=== PATIENT | male | born 1935 | race Caucasian/White ===

== ENCOUNTER 2017-04-17 19:36 | Inpatient (IN) | payer OTHER ==
[~2017-04-17] VITALS: Ht 185.4 cm; Wt 58.1 kg
[~2017-04-17 19:36] MED LIST: ADULT LOW DOSE81 M1 PO; ALENDRONATE SOD70 MG PO; APRISO0.375 GM PO; AVODART0.5 MG PO; BALSALAZIDE DI750 MG PO; BEER; CALCIUM + D TA1 EACH PO; CITRATE OF MAG296 ML PO; DELZICOL400 MG PO; DOCUSATE SODIU100 MG PO; FINASTERIDE5 MG PO; FLOMAX0.4 MG PO; METFORMIN HCL500 MG PO; METRO GEL 1%60 GM PO; RANITIDINE HCL300 MG PO; SENNA PLUS TAB1 EACH PO; TOPROL XL50 MG PO; VIAGRA100 MG PO; VITAMIN D31000 UNIT PO; ZOCOR20 MG PO; [UNRECOGNIZED DRUG - OTHER] PO
[2017-04-17 20:01] LABS: HEMATOCRIT 36.3 % (38.0-50.0); MCH 29.2 PG (29.0-34.0); MCHC 33.1 G/DL (30.0-36.0); MCV 88.3 FL (86-99); PLATELET COUNT 366 K/uL (156-360); RBC DIS.WIDTH-CV 13.3 % (11.8-14.6); RBC DIS.WIDTH-SD 43.2 % (39-53); RED BLOOD COUNT 4.11 M/uL (4.00-5.50); WHITE BLOOD COUNT 15.9 K/uL (4.1-10.2)
[2017-04-17 20:09] LABS: CHLORIDE 96 mEq/L (99-109); POTASSIUM 3.7 mEq/L (3.7-5.4); SODIUM 139 mEq/L (136-147)
[2017-04-17 20:10] LABS: GLUCOSE 177 mg/dL (70-99)
[2017-04-17 20:14] LABS: CREATININE 0.8 mg/dL (0.6-1.3); GFR ESTIMATE (CALCULATED) > 59 mL/min/ (58.99-99999)
[2017-04-17 20:15] LABS: UREA NITROGEN (BUN) 19 mg/dL (9-23)
[2017-04-17 20:38] LABS: ALBUMIN 3.9 g/dL (3.2-4.8)
[2017-04-17 20:41] LABS: TOTAL PROTEIN 7.3 g/dL (6.4-8.3)
[2017-04-17 20:43] LABS: TOTAL BILIRUBIN 1.4 mg/dL (0.0-1.0)
[2017-04-17 20:44] LABS: ALKALINE PHOSPHATASE 54 IU/L (3-129)
[2017-04-17 20:46] LABS: AST (GOT) 11 IU/L (2-34)
[2017-04-17 20:47] LABS: ALT (GPT) 12 IU/L (3-49); DIRECT BILIRUBIN 0.6 mg/dL (0.0-0.3)
[2017-04-17 21:44] LABS: THYROTROPIN (TSH) 0.53 MIU/L (0.4-5.5)
[2017-04-17 22:00] LABS: TROP-I INTERPRETATION NEGATIVE; TROPONIN-I < 0.01 ng/mL (0.0-0.30)
[2017-04-17] MEDS ORDERED: BALSALAZIDE DI750 MG PO (22:58)
[2017-04-17] MEDS ORDERED: FIBER0.4 GM PO (22:58)
[2017-04-17] MEDS ORDERED: ARICEPT23 MG PO (22:58)
[2017-04-17] MEDS ORDERED: LISINOPRIL5 MG PO (22:58)
[2017-04-17] MEDS ORDERED: FOLIC ACID1 MG PO (22:59)
[2017-04-17] MEDS ORDERED: JANUVIA25 M1 PO (22:59)
[2017-04-17] MEDS ORDERED: CYANOCOBALAM1000 MCG PO (22:59)
[2017-04-17] MEDS ORDERED: CYMBALTA30 MG PO (22:59)
[2017-04-17] MEDS ORDERED: PROTONIX40 MG PO (22:59)
[2017-04-17] MEDS ORDERED: IPRATROPIUM BRO15 ML BOTH NARES (22:59)
[2017-04-18 00:55] VITALS: BP 160/97
[2017-04-18 03:45] VITALS: BP 149/73
[2017-04-18 06:57] LABS: BASOPHIL (%) 0.3 % (0-1); EOSINOPHIL (%) 0.1 % (0-5); HEMATOCRIT 35.1 % (38.0-50.0); HEMOGLOBIN 11.2 G/DL (12.5-16.6); IMMATURE GRANULOCYTE (%) 0.9 % (0.0-0.7); LYMPHOCYTE (%) 4.6 % (15-42); LYMPHOCYTE COUNT 0.7 K/uL (1.0-2.8); MCH 28.6 PG (29.0-34.0); MCHC 31.9 G/DL (30.0-36.0); MCV 89.8 FL (86-99); MONOCYTE (%) 6.9 % (3-12); NEUTROPHIL (%) 87.2 % (45-76); NEUTROPHIL COUNT 13.2 K/uL (1.8-6.4); PLATELET COUNT 333 K/uL (156-360); RBC DIS.WIDTH-CV 13.4 % (11.8-14.6); RBC DIS.WIDTH-SD 44.3 % (39-53); RED BLOOD COUNT 3.91 M/uL (4.00-5.50); WHITE BLOOD COUNT 15.1 K/uL (4.1-10.2)
[2017-04-18 07:15] LABS: CHLORIDE 100 MEQ/L (99-109); CREATININE 0.8 MG/DL (0.6-1.3); GFR ESTIMATE (CALCULATED) > 59 mL/min/ (58.99-99999); GLUCOSE 143 mg/dL (70-99); MAGNESIUM 1.9 mg/dl (1.3-2.7); PHOSPHORUS 3.5 mg/dL (2.5-4.9); POTASSIUM 3.8 MEQ/L (3.7-5.4); SODIUM 141 MEQ/L (136-147); UREA NITROGEN (BUN) 19 mg/dL (9-23)
[2017-04-18 07:59] VITALS: BP 151/80
[2017-04-18 15:38] VITALS: BP 136/71
[2017-04-18 19:57] VITALS: BP 174/76
[2017-04-18 23:55] VITALS: BP 136/84
[2017-04-19 03:55] VITALS: BP 165/76
[2017-04-19 06:12] LABS: HEMATOCRIT 30.4 % (38.0-50.0); HEMOGLOBIN 9.6 G/DL (12.5-16.6); MCH 28.2 PG (29.0-34.0); MCHC 31.6 G/DL (30.0-36.0); MCV 89.1 FL (86-99); PLATELET COUNT 317 K/uL (156-360); RBC DIS.WIDTH-CV 13.4 % (11.8-14.6); RBC DIS.WIDTH-SD 44.2 % (39-53); RED BLOOD COUNT 3.41 M/uL (4.00-5.50); WHITE BLOOD COUNT 13.3 K/uL (4.1-10.2)
[2017-04-19 06:43] LABS: CHLORIDE 102 MEQ/L (99-109); CREATININE 0.7 MG/DL (0.6-1.3); GFR ESTIMATE (CALCULATED) > 59 mL/min/ (58.99-99999); GLUCOSE 124 mg/dL (70-99); POTASSIUM 3.4 MEQ/L (3.7-5.4); SODIUM 140 MEQ/L (136-147); UREA NITROGEN (BUN) 16 mg/dL (9-23)
[2017-04-19 07:59] VITALS: BP 157/72
[2017-04-19] MEDS ORDERED: SPIRIVA RESPIMAT4 GM IH (09:28)
[2017-04-19] MEDS ORDERED: VENTOLIN HFA18 GM IH (09:29)
== END 2017-04-19 13:46 | disposition home or self-care (01) | DRG 178 ==
LOC: EME 19:36 → EDOF 23:33 → ENRESERV 23:34 → EDOF 04-18 00:54 → 5SOUTH 04-18 00:55
PROVIDERS: Emergency Medicine; Hospitalist; Internal Medicine
DX: J69.0 Pneumonitis due to inhalation of food and vomit (principal); R13.10 Dysphagia, unspecified; E46 Unspecified protein-calorie malnutrition; J44.9 Chronic obstructive pulmonary disease, unspecified; E11.9 Type 2 diabetes mellitus without complications; E78.5 Hyperlipidemia, unspecified; F10.21 Alcohol dependence, in remission; I10 Essential (primary) hypertension; I25.10 Atherosclerotic heart disease of native coronary artery without angina pectoris; I27.20 Pulmonary hypertension, unspecified; I49.3 Ventricular premature depolarization; K21.9 Gastro-esophageal reflux disease without esophagitis; K51.90 Ulcerative colitis, unspecified, without complications; N32.3 Diverticulum of bladder; N32.0 Bladder-neck obstruction; N40.1 Benign prostatic hyperplasia with lower urinary tract symptoms; R33.8 Other retention of urine; Z68.1 Body mass index [BMI] 19.9 or less, adult; Z79.82 Long term (current) use of aspirin; Z95.0 Presence of cardiac pacemaker; Z95.1 Presence of aortocoronary bypass graft; Z87.891 Personal history of nicotine dependence
CPT/HCPCS: 71020; 71260; 74177; 74230; 80048; 80048 91; 80076; 81003; 82948; 83605; 83735; 84100; 84443; 84484; 85025; 85027; 87040; 87070; 87205; 87801; 92610 GN; 92611 GN; 93005; 94640; 94640 76; 99202; 99281; 99285; J0295; J0696; J1644; J1815; J7030; J7050; J7120

== ENCOUNTER 2017-06-13 14:53 | Emergency (ER) | payer OTHER ==
[~2017-06-13] VITALS: Ht 185.4 cm; Wt 61.3 kg
[~2017-06-13 14:53] MED LIST changes: +ARICEPT23 MG PO; +CYANOCOBALAM1000 MCG PO; +CYMBALTA30 MG PO; +FIBER0.4 GM PO; +FOLIC ACID1 MG PO; +IPRATROPIUM BRO15 ML BOTH NARES; +JANUVIA25 M1 PO; +LISINOPRIL5 MG PO; +PROTONIX40 MG PO; +SPIRIVA RESPIMAT4 GM IH; +VENTOLIN HFA18 GM IH
[2017-06-13] MEDS ORDERED: VITAMIN D31000 UNI2 PO (20:04)
[2017-06-13] MEDS ORDERED: JANUVIA25 M1 PO (20:05)
[2017-06-13] MEDS ORDERED: MOTRIN400 MG PO (21:05)
[2017-06-13 21:38] VITALS: BP 214/110
== END 2017-06-13 21:44 | disposition home or self-care (01) ==
LOC: EME 14:53
DX: S29.012A Strain of muscle and tendon of back wall of thorax, initial encounter (principal); W10.9XXA Fall (on) (from) unspecified stairs and steps, initial encounter; E11.9 Type 2 diabetes mellitus without complications; E78.5 Hyperlipidemia, unspecified; I10 Essential (primary) hypertension; K21.9 Gastro-esophageal reflux disease without esophagitis; F03.90 Unspecified dementia, unspecified severity, without behavioral disturbance, psychotic disturbance, mood disturbance, and anxiety; F32.9 Major depressive disorder, single episode, unspecified; F41.9 Anxiety disorder, unspecified; Z95.1 Presence of aortocoronary bypass graft; Z87.891 Personal history of nicotine dependence; Z79.82 Long term (current) use of aspirin
CPT/HCPCS: 71046; 99281; 99284

== ENCOUNTER 2017-06-28 17:21 | Emergency (ER) | payer OTHER ==
[~2017-06-28] VITALS: Ht 182.9 cm; Wt 59.3 kg
[~2017-06-28 17:21] MED LIST changes: +MOTRIN400 MG PO; +VITAMIN D31000 UNI2 PO
[2017-06-28] MEDS ORDERED: COLACE100 MG PO (19:09)
[2017-06-28] MEDS ORDERED: MIRALAX17 GM PO (19:09)
[2017-06-28] MEDS ORDERED: BISAC-EVAC10 MG PR (19:09)
[2017-06-28] MEDS ORDERED: SENNA8.6 MG PO (19:09)
[2017-06-28 19:34] VITALS: BP 145/76
== END 2017-06-28 19:35 | disposition home or self-care (01) ==
LOC: EME 17:21
DX: K59.00 Constipation, unspecified (principal); E11.9 Type 2 diabetes mellitus without complications; Z79.84 Long term (current) use of oral hypoglycemic drugs; E78.5 Hyperlipidemia, unspecified; F03.90 Unspecified dementia, unspecified severity, without behavioral disturbance, psychotic disturbance, mood disturbance, and anxiety; I10 Essential (primary) hypertension; K21.9 Gastro-esophageal reflux disease without esophagitis; F32.9 Major depressive disorder, single episode, unspecified; F41.9 Anxiety disorder, unspecified; Z95.1 Presence of aortocoronary bypass graft; Z87.891 Personal history of nicotine dependence
CPT/HCPCS: 74019; 99281; 99284

== ENCOUNTER 2017-07-23 15:56 | Inpatient (IN) | payer OTHER ==
[~2017-07-23] VITALS: Ht 185.4 cm; Wt 56.3 kg
[~2017-07-23 15:56] MED LIST changes: +BISAC-EVAC10 MG PR; +COLACE100 MG PO; +MIRALAX17 GM PO; +SENNA8.6 MG PO
[2017-07-23 16:56] LABS: BASOPHIL (%) 0.5 % (0-1); EOSINOPHIL (%) 0.9 % (0-5); EOSINOPHIL COUNT 0.1 K/uL (0-0.3); HEMATOCRIT 34.2 % (38.0-50.0); HEMOGLOBIN 10.9 G/DL (12.5-16.6); IMMATURE GRANULOCYTE (%) 0.8 % (0.0-0.7); LYMPHOCYTE (%) 7.5 % (15-42); LYMPHOCYTE COUNT 0.5 K/uL (1.0-2.8); MCH 29.1 PG (29.0-34.0); MCHC 31.9 G/DL (30.0-36.0); MCV 91.2 FL (86-99); MONOCYTE (%) 4.5 % (3-12); MONOCYTE COUNT 0.3 K/uL (0-0.8); NEUTROPHIL (%) 85.8 % (45-76); NEUTROPHIL COUNT 5.6 K/uL (1.8-6.4); PLATELET COUNT 286 K/uL (156-360); RBC DIS.WIDTH-CV 13.8 % (11.8-14.6); RBC DIS.WIDTH-SD 46.5 % (39-53); RED BLOOD COUNT 3.75 M/uL (4.00-5.50); WHITE BLOOD COUNT 6.5 K/uL (4.1-10.2)
[2017-07-23 17:05] LABS: ALBUMIN 3.5 g/dL (3.2-4.8)
[2017-07-23 17:06] LABS: CHLORIDE 100 mEq/L (99-109); SODIUM 142 mEq/L (136-147)
[2017-07-23 17:08] LABS: GLUCOSE 120 mg/dL (70-99)
[2017-07-23 17:10] LABS: TOTAL BILIRUBIN 0.7 mg/dL (0.0-1.0)
[2017-07-23 17:11] LABS: ALKALINE PHOSPHATASE 48 IU/L (3-129)
[2017-07-23 17:12] LABS: CREATININE 0.8 mg/dL (0.6-1.3); GFR ESTIMATE (CALCULATED) > 59 mL/min/ (58.99-99999)
[2017-07-23 17:13] LABS: AST (GOT) 10 IU/L (2-34); UREA NITROGEN (BUN) 18 mg/dL (9-23)
[2017-07-23 17:15] LABS: ALT (GPT) 7 IU/L (3-49)
[2017-07-23 17:17] LABS: TROP-I INTERPRETATION NEGATIVE; TROPONIN-I 0.03 ng/mL (0.0-0.30)
[2017-07-23 17:48] LABS: THYROTROPIN (TSH) 0.86 MIU/L (0.4-5.5)
[2017-07-23 18:32] LABS: APPEARANCE CLEAR ((CLEAR)); BILIRUBIN NEGATIVE; BLOOD NEGATIVE; COLOR YELLOW ((YELLOW)); GLUCOSE (STRIP) NEGATIVE; KETONES NEGATIVE; LEUKOCYTES NEGATIVE; NITRITE NEGATIVE; PROTEIN (STRIP) NEGATIVE; SPECIFIC GRAVITY 1.014 (1.000-1.030); UROBILINOGEN 0.2 MG/DL (0.2-1.0)
[2017-07-23] MEDS ORDERED: TAMSULOSIN HCL0.4 MG PO (21:28)
[2017-07-23] MEDS ORDERED: SIMVASTATIN20 MG PO (21:28)
[2017-07-23] MEDS ORDERED: LISINOPRIL2.5 MG PO (21:28)
[2017-07-23] MEDS ORDERED: PANTOPRAZOLE SO40 MG PO (21:28)
[2017-07-23 22:58] VITALS: BP 142/67
[2017-07-24] VITALS (7 sets, daily range): BP systolic 132–189; BP diastolic 65–93
[2017-07-24] MEDS ORDERED: BALSALAZIDE DI750 MG PO (16:39)
[2017-07-24] MEDS ORDERED: JANUVIA25 M1 PO (16:39)
[2017-07-24] MEDS ORDERED: VITAMIN D31000 UNIT PO (16:40)
[2017-07-24] MEDS ORDERED: ASPIRIN81 M2 PO (16:40)
[2017-07-24] MEDS ORDERED: VITAMIN B122500 MCG PO (16:42)
[2017-07-24] MEDS ORDERED: FOLIC ACID1 MG PO (16:42)
[2017-07-24] MEDS ORDERED: GAVILAX17 GM PO (16:43)
[2017-07-24] MEDS ORDERED: SPIRIVA RESPIMAT4 GM IH (16:44)
[2017-07-24] MEDS ORDERED: VENTOLIN HFA18 GM IH (16:45)
[2017-07-24 19:51] LABS: HEMATOCRIT 33.3 % (38.0-50.0); HEMOGLOBIN 10.7 G/DL (12.5-16.6); MCV 90.7 FL (86-99)
[2017-07-25] VITALS (8 sets, daily range): BP systolic 132–176; BP diastolic 66–89
[2017-07-25 08:50] LABS: HEMATOCRIT 36.9 % (38.0-50.0); HEMOGLOBIN 11.6 G/DL (12.5-16.6)
[2017-07-25 20:01] LABS: HEMATOCRIT 36.3 % (38.0-50.0); HEMOGLOBIN 11.2 G/DL (12.5-16.6); MCV 90.8 FL (86-99)
[2017-07-26 04:34] VITALS: BP 127/71
[2017-07-26 08:05] VITALS: BP 161/86
[2017-07-26 08:57] LABS: HEMATOCRIT 35.1 % (38.0-50.0); HEMOGLOBIN 11.4 G/DL (12.5-16.6); MCV 89.8 FL (86-99)
[2017-07-26 13:02] VITALS: BP 112/71
[2017-07-26 16:32] VITALS: BP 115/70
[2017-07-26 19:20] VITALS: BP 98/55
[2017-07-26 19:39] LABS: HEMATOCRIT 36.7 % (38.0-50.0); HEMOGLOBIN 11.5 G/DL (12.5-16.6); MCV 89.7 FL (86-99)
[2017-07-26 23:30] VITALS: BP 155/75
[2017-07-27 03:38] VITALS: BP 145/65
[2017-07-27 07:23] VITALS: BP 94/60
[2017-07-27 08:38] LABS: HEMATOCRIT 36.7 % (38.0-50.0); HEMOGLOBIN 11.8 G/DL (12.5-16.6); MCV 90.4 FL (86-99)
[2017-07-27 11:44] VITALS: BP 101/76
[2017-07-27] MEDS ORDERED: PROTONIX40 MG PO (11:46)
[2017-07-27] MEDS ORDERED: IPRATROPIUM BRO15 ML BOTH NARES (11:49)
[2017-07-27] MEDS ORDERED: PANTOPRAZOLE SO40 MG PO (14:06)
[2017-07-27 15:36] VITALS: BP 107/71
== END 2017-07-27 18:06 | DRG 378 ==
LOC: EME → EDBD 15:56 → EME 15:56 → EDOF 21:10 → 5WEST 21:10 → ENRESERV 21:17 → 5WEST 22:34
PROVIDERS: Emergency Medicine; Hospitalist
DX: K62.5 Hemorrhage of anus and rectum (principal); K62.89 Other specified diseases of anus and rectum; K59.00 Constipation, unspecified; E46 Unspecified protein-calorie malnutrition; E11.9 Type 2 diabetes mellitus without complications; E78.5 Hyperlipidemia, unspecified; F03.90 Unspecified dementia, unspecified severity, without behavioral disturbance, psychotic disturbance, mood disturbance, and anxiety; I10 Essential (primary) hypertension; I25.10 Atherosclerotic heart disease of native coronary artery without angina pectoris; I27.20 Pulmonary hypertension, unspecified; K21.9 Gastro-esophageal reflux disease without esophagitis; R13.10 Dysphagia, unspecified; K29.70 Gastritis, unspecified, without bleeding; K44.9 Diaphragmatic hernia without obstruction or gangrene; N31.2 Flaccid neuropathic bladder, not elsewhere classified; N40.0 Benign prostatic hyperplasia without lower urinary tract symptoms; Z68.1 Body mass index [BMI] 19.9 or less, adult; Z80.0 Family history of malignant neoplasm of digestive organs; Z95.1 Presence of aortocoronary bypass graft; Z87.891 Personal history of nicotine dependence
CPT/HCPCS: 70491; 71260; 74177; 80053; 81003; 82948; 83605; 84443; 84484; 85014; 85018; 85025; 87077; 87086; 87186; 93005; 97530 GO; 97530 GP; 99202; 99281; 99285; C9113; G0378; G8978 GP CJ; G8979 GP CI; G8987 GO CJ; G8988 CI; J0360; J0696; J1644; J1815; J3480; J7030

== ENCOUNTER 2017-09-15 00:21 | Emergency (ER) | payer OTHER ==
[~2017-09-15] VITALS: Ht 188 cm; Wt 54.4 kg
[~2017-09-15 00:21] MED LIST changes: +ASPIRIN81 M2 PO; +GAVILAX17 GM PO; +LISINOPRIL2.5 MG PO; +PANTOPRAZOLE SO40 MG PO; +SIMVASTATIN20 MG PO; +TAMSULOSIN HCL0.4 MG PO; +VITAMIN B122500 MCG PO
[2017-09-15 01:49] VITALS: BP 115/77
== END 2017-09-15 01:51 | disposition home or self-care (01) ==
LOC: EME → EDBD 00:21 → EME 00:21
PROC: 0T2BX0Z Change Drainage Device in Bladder, External Approach (ICD-10-PCS; principal; 2017-09-15)
DX: R33.9 Retention of urine, unspecified (principal); N40.1 Benign prostatic hyperplasia with lower urinary tract symptoms; E11.9 Type 2 diabetes mellitus without complications; I10 Essential (primary) hypertension; K21.9 Gastro-esophageal reflux disease without esophagitis; E78.5 Hyperlipidemia, unspecified; F03.90 Unspecified dementia, unspecified severity, without behavioral disturbance, psychotic disturbance, mood disturbance, and anxiety; F41.9 Anxiety disorder, unspecified; F32.9 Major depressive disorder, single episode, unspecified; Z79.82 Long term (current) use of aspirin; Z79.84 Long term (current) use of oral hypoglycemic drugs; Z87.891 Personal history of nicotine dependence; Z95.1 Presence of aortocoronary bypass graft; Z87.19 Personal history of other diseases of the digestive system; Z87.2 Personal history of diseases of the skin and subcutaneous tissue
CPT/HCPCS: 87077; 87086; 87186; 99281; 99284

== ENCOUNTER 2017-10-27 09:24 | Emergency (ER) | payer OTHER ==
[~2017-10-27] VITALS: Ht 185.4 cm; Wt 59.2 kg
[2017-10-27 10:04] LABS: APPEARANCE CLOUDY ((CLEAR)); BILIRUBIN NEGATIVE; BLOOD LARGE; COLOR YELLOW ((YELLOW)); GLUCOSE (STRIP) NEGATIVE; KETONES NEGATIVE; LEUKOCYTES MODERATE; NITRITE NEGATIVE; PROTEIN (STRIP) 30; UROBILINOGEN 0.2 MG/DL (0.2-1.0)
[2017-10-27 10:27] LABS: BACTERIA 1+ /HPF; EPITHELIAL CELLS RARE /HPF; MUCUS NONE SEEN /LPF; RED BLOOD CELLS TNTC /HPF (0-5); UCUL ADDED? YES
[2017-10-27] MEDS ORDERED: KEFLEX500 MG PO (10:46)
[2017-10-27 12:50] VITALS: BP 162/102
== END 2017-10-27 12:56 | disposition home or self-care (01) ==
LOC: EME 09:24
PROVIDERS: Emergency Medicine
DX: N39.0 Urinary tract infection, site not specified (principal); B96.89 Other specified bacterial agents as the cause of diseases classified elsewhere; I10 Essential (primary) hypertension; E11.9 Type 2 diabetes mellitus without complications; E78.5 Hyperlipidemia, unspecified; K21.9 Gastro-esophageal reflux disease without esophagitis; N40.0 Benign prostatic hyperplasia without lower urinary tract symptoms; J30.2 Other seasonal allergic rhinitis; F03.90 Unspecified dementia, unspecified severity, without behavioral disturbance, psychotic disturbance, mood disturbance, and anxiety; F41.9 Anxiety disorder, unspecified; F32.9 Major depressive disorder, single episode, unspecified; Z79.84 Long term (current) use of oral hypoglycemic drugs; Z79.82 Long term (current) use of aspirin; Z79.51 Long term (current) use of inhaled steroids; Z87.891 Personal history of nicotine dependence; Z87.19 Personal history of other diseases of the digestive system; Z95.1 Presence of aortocoronary bypass graft
CPT/HCPCS: 81003; 87077; 87086; 87186; 99281; 99285